=== PATIENT | female | born 1975 | race Caucasian/White ===

== ENCOUNTER 2019-04-18 07:59 | Day surgery (SDC) | payer OTHER ==
[~2019-04-18] VITALS: Ht 152.4 cm; Wt 66.7 kg
[2019-04-18] MEDS ORDERED: LIDOCAINE 2% 1000 MG/50 ML VIAL INJ ONE (09:09)
[2019-04-18] MEDS ORDERED: fentaNYL 0.05 MG/ML VIAL ONE (09:55)
[2019-04-18] MEDS ORDERED: fentaNYL 0.05 MG/ML VIAL IVP ONE (11:05)
== END 2019-04-18 11:05 | disposition home or self-care (01) ==
LOC: MDS 07:59 → MMU 08:06 → MDS 11:05
PROVIDERS: ATTEND Internal Medicine Gastroenterology
DX: R17 Unspecified jaundice (principal); E66.9 Obesity, unspecified; Z79.84 Long term (current) use of oral hypoglycemic drugs; Z79.899 Other long term (current) drug therapy; Z68.30 Body mass index [BMI] 30.0-30.9, adult
CPT/HCPCS: 47000; 76942; 88307; 88313; J2001; J3010; Q0092